=== PATIENT | male | born 1940 | race Asian ===

== ENCOUNTER 2019-08-21 13:11 | Inpatient (IN) | payer SELFPAY ==
[~2019-08-21] VITALS: Ht 172.7 cm; Wt 60.8 kg
--- NOTE | 2019-08-21 13:46 | Emergency Room Report ---
History of Present Illness General Chief Complaint: Multiple Trauma/Fall Source: Patient Present Illness HPI 78-year-old male with no known medical conditions status post mechanical fall. Patient reported slipping on wet floor in his home. He denies any head injury loss of consciousness. Reports fall onto right side where he thought he strained a muscle. He was unable to walk on right side, so he came to emergency room for further evaluation. Patient has no head injury, loss of consciousness or other complaints. Allergies: Coded Allergies: PEACH (Verified Allergy, Unknown, 08/21/19) Nursing Documentation-[facility] Past Medical History: No History, Except For Review of Systems Constitutional: Denies: chills, fever Respiratory: Denies: cough, shortness of breath Cardiovascular: Denies: chest pain, palpitations Gastrointestinal: Denies: diarrhea, vomiting Genitourinary: Denies: hematuria, pain Musculoskeletal: Denies: joint swelling Skin: Denies: rash, lesions Neurological: Denies: headache, dizziness Physical Exam Vital Signs Date Time Temp Pulse Resp B/P (MAP) Pulse Ox O2 Delivery O2 Flow Rate FiO2 08/21/19 13:24 97.5 76 16 178/90 (119) 99 Room Air Sp02 EP Interpretation: reviewed General Appearance: well appearing, no apparent distress, non-toxic Head: normocephalic, atraumatic Eyes: bilateral eye normal inspection ENT: hearing grossly normal, EOM grossly intact, moist mucus membranes Neck: supple Respiratory: lungs clear, normal breath sounds, no respiratory distress, speaking full sentences Cardiovascular #1: regular rate, rhythm, normal capillary refill Cardiovascular #2: 2+ radial (R), 2+ radial (L), 2+ dorsalis pedis (R), 2+ dorsalis pedis (L) Gastrointestinal: soft, non-distended Rectal: deferred Musculoskeletal: decreased range of motion - Right hip flexion and extension, pelvis stable, no lower extremity edema, tender - Over right posterior hip and buttocks., other - Right leg not shortened not externally rotated, unable to lift, or move. Sensation intact distally. Neurologic: alert, motor strength/tone normal - Limited exam right leg otherwise 5 out of 5 extremities, sensory intact, grossly normal Psychiatric: mood/affect normal Skin: warm/dry, normal turgor Medical Decision Making Diagnostic Impression: Primary Impression: Closed right hip fracture Additional Impression: Fall ER Course 78-year-old male status post fall at at home, no head injury or LOC. Reported pain to right hip unable to ambulate/flex or extend. Differential includes fracture, contusion, pain, head injury, weakness Laboratory Tests Test 08/21/19 13:45 White Blood Count 12.0 K/UL (4.8-10.8) H Red Blood Count 4.51 M/UL (4.70-6.10) L Hemoglobin 13.2 G/DL (14.2-18.0) L Hematocrit 37.0 % (42.0-52.0) L Mean Corpuscular Volume 82 FL (80-99) Mean Corpuscular Hemoglobin 29.3 PG (27.0-31.0) Mean Corpuscular Hemoglobin Concent 35.7 G/DL (32.0-36.0) Red Cell Distribution Width 11.4 % (11.6-14.8) L Platelet Count 171 K/UL (150-450) Mean Platelet Volume 7.6 FL (6.5-10.1) Neutrophils (%) (Auto) 77.3 % (45.0-75.0) H Lymphocytes (%) (Auto) 14.5 % (20.0-45.0) L Monocytes (%) (Auto) 6.6 % (1.0-10.0) Eosinophils (%) (Auto) 0.5 % (0.0-3.0) Basophils (%) (Auto) 1.1 % (0.0-2.0) Prothrombin Time 10.4 SEC (9.30-11.50) Prothrombin Time INR 1.0 (0.9-1.1) PTT 26 SEC (23-33) Urine Color Yellow Urine Appearance Clear Urine pH 5 (4.5-8.0) Urine Specific [place] 1.020 (1.005-1.035) Urine Protein 2+ (NEGATIVE) H Urine Glucose (UA) Negative (NEGATIVE) Urine Ketones Negative (NEGATIVE) Urine Blood 2+ (NEGATIVE) H Urine Nitrite Negative (NEGATIVE) Urine Bilirubin Negative (NEGATIVE) Urine Urobilinogen Normal MG/DL (0.0-1.0) Urine Leukocyte Esterase Negative (NEGATIVE) Urine RBC 5-10 /HPF (0 - 0) H Urine WBC 0-2 /HPF (0 - 0) Urine Squamous Epithelial Cells Occasional /LPF Urine Bacteria Occasional /HPF (NONE) Urine Mucus Many /LPF (NONE/OCC) H Sodium Level 138 MMOL/L (136-145) Potassium Level 3.2 MMOL/L (3.5-5.1) L Chloride Level 103 MMOL/L (98-107) Carbon Dioxide Level 27 MMOL/L (21-32) Anion Gap 8 mmol/L (5-15) Blood Urea Nitrogen 25 mg/dL (7-18) H Creatinine 1.0 MG/DL (0.55-1.30) Estimate Glomerular Filtration Rate mL/min (>60) Glucose Level 138 MG/DL (74-106) H Calcium Level 8.4 MG/DL (8.5-10.1) L Total Bilirubin 0.8 MG/DL (0.2-1.0) Aspartate Amino Transferase (AST) 24 U/L (15-37) Alanine Aminotransferase (ALT) 18 U/L (12-78) Alkaline Phosphatase 96 U/L (46-116) Total Protein 7.1 G/DL (6.4-8.2) Albumin 3.2 G/DL (3.4-5.0) L Globulin 3.9 g/dL Albumin/Globulin Ratio 0.8 (1.0-2.7) L Lab Results Impression Mild elevation in WBC mild decrease in hemoglobin 13.2 mild hypokalemia 3.2 mild elevation BUN 25 INR within normal limits Other X-Ray Diagnostic Results Other X-Ray Diagnostic Results : # of Views/Limited Vs Complete: 3 View Indication: Pain Interpretation: other - Right femoral head fracture Last Vital Signs Date Time Temp Pulse Resp B/P (MAP) Pulse Ox O2 Delivery O2 Flow Rate FiO2 08/21/19 13:24 97.5 76 16 178/90 (119) 99 Room Air Reevaluation Impression Discussed case with Dr. Park and consulted Dr. Hung for right hip fracture. Disposition: ADMITTED INPATIENT Condition: Jake Arvizu M.D. Aug 21, 2019 13:46
--- NOTE | 2019-08-21 14:00 | NUR ---
ED Nurse Note:pt. was BIBA from home with possible right hip fx, s/p falls, pt. is A/Ox4 , skin is intact, continent, blood and urine sent to labs, VSS, given meds
[2019-08-21 14:06] LABS: APPEARANCE,URINE CLEAR; BILIRUBIN, URINE NEGATIVE (NEGATIVE); GLUCOSE, URINE (UA) NEGATIVE (NEGATIVE); KETONES,URINE NEGATIVE (NEGATIVE); LEUKOCYTE ESTERASE ,URINE NEGATIVE (NEGATIVE); NITRITE,URINE NEGATIVE (NEGATIVE); PH,URINE 5 (4.5-8.0); PROTEIN,URINE 2+ (NEGATIVE); UROBILINOGEN,URINE NORMAL MG/DL (0.0-1.0)
[2019-08-21 14:08] LABS: BASOPHILS % (AUTO) 1.1 % (0.0-2.0); EOSINOPHILS % (AUTO) 0.5 % (0.0-3.0); HEMOGLOBIN 13.2 G/DL (14.2-18.0); LYMPHOCYTES % (AUTO) 14.5 % (20.0-45.0); MEAN CORPUSCULAR VOLUME 82 FL (80-99); MONOCYTES % (AUTO) 6.6 % (1.0-10.0); NEUTROPHILS % (AUTO) 77.3 % (45.0-75.0); PLATELET COUNT 171 K/UL (150-450); RED BLOOD COUNT 4.51 M/UL (4.70-6.10); RED CELL DISTRIBUTION WIDTH 11.4 % (11.6-14.8)
[2019-08-21 14:11] VITALS: BP 178/90
[2019-08-21] MEDS ORDERED: [UNRECOGNIZED DRUG - REMARK] ORAL (14:12)
[2019-08-21 14:22] LABS: ANION GAP 8 mmol/L (5-15); BLOOD UREA NITROGEN 25 mg/dL (7-18); CALCIUM 8.4 MG/DL (8.5-10.1); CARBON DIOXIDE 27 MMOL/L (21-32); CHLORIDE 103 MMOL/L (98-107); COLOR,URINE YELLOW; POTASSIUM 3.2 MMOL/L (3.5-5.1); SODIUM 138 MMOL/L (136-145)
[2019-08-21 14:26] LABS: ALANINE AMINOTRANSFERASE 18 U/L (12-78); ALBUMIN 3.2 G/DL (3.4-5.0); ALBUMIN/GLOBULIN RATIO 0.8 (1.0-2.7); ALKALINE PHOSPHATASE 96 U/L (46-116); ASPARTATE AMINO TRANSFERASE 24 U/L (15-37); BILIRUBIN,TOTAL 0.8 MG/DL (0.2-1.0)
[2019-08-21 14:40] VITALS: BP 164/68
--- NOTE | 2019-08-21 14:41 | NUR ---
ED Nurse Note:pt. reported falling thursday night at home ,no pain when in bed only when trying to walk
--- NOTE | 2019-08-21 15:05 | NUR ---
ED Nurse Note:pt. was sent to med surge condition stable
--- NOTE | 2019-08-21 15:23 | NUR ---
NURSE NOTES: Pt was admitted from ED via [facility] in stable condition. AAO x 4. Room air. No c/o of distress. c/o of pain only when pt moves/ambulates. IV on LAC 20g intact and patent, with saline lock. Orientation on the unit given. Pt has no belonging. Family at the bedside. Admission was received. Side rails x 2. Bed in the lowest, locked, and alarm on. Call light within reach. Will continue to monitor
[2019-08-21] MEDS ORDERED: Hydromorphone 0.5mg/0.5ml inj IVP PRN (15:30)
[2019-08-21 16:00] VITALS: BP 118/52
--- NOTE | 2019-08-21 19:16 | History and Physical ---
History of Present Illness General Date patient seen: Aug 21, 2019 Reason for Hospitalization: Multiple Trauma/Fall Present Illness HPI 78-year-old male with no known medical conditions status post mechanical fall. Patient reported slipping on wet floor in his home. He denies any head injury loss of consciousness. Reports fall onto right side where he thought he strained a muscle. He was unable to walk on right side, so he came to emergency room for further evaluation. Patient has no head injury, loss of consciousness or other complaints. Family at bedside. This has never happened. He is independent of ADLs. His fall was 2 days prior to admission, his pain got increasingly worse so he came in Past medical history: none Past surgical history: none Family history: no family history of DM, HTN, or cancer Social history: Denies tobacco, etoh, or illicit drug use. Lives at home Allergies: Coded Allergies: PEACH (Verified Allergy, Unknown, 08/21/19) Medication History Scheduled PRN [pill], ORAL NEEDED PRN for For Pain, (Reported) Patient History Healthcare decision maker Resuscitation status Full Code Advanced Directive on File Review of Systems Constitutional: Denies: no symptoms, see HPI, chills, sweats, fever, malaise, weakness, other Eye: Denies: no symptoms, see HPI, eye pain, blurred vision, tearing, double vision, nose pain, nose congestion, acuity changes, discharge, other ENT: Denies: no symptoms, see HPI, ear pain, ear discharge, nose pain, nose congestion, throat pain, throat swelling, mouth pain, hearing loss, nasal discharge, other Respiratory: Denies: no symptoms, see HPI, cough, orthopnea, shortness of breath, stridor, wheezing, BLACK, sputum, other Cardiovascular: Denies: no symptoms, see HPI, chest pain, edema, palpitations, syncope, PND, other Gastrointestinal: Denies: no symptoms, see HPI, abdominal pain, constipation, diarrhea, nausea, vomiting, melena, hematemesis, other Genitourinary: Denies: no symptoms, see HPI, discharge, dysuria, frequency, hematuria, pain, retention, incontinence, urgency, vag bleed/dc, other Musculoskeletal: Denies: no symptoms, see HPI, back pain, gout, joint pain, joint swelling, muscle pain, muscle stiffness, other Skin: Denies: no symptoms, see HPI, rash, change in color, change in hair/nails , dryness, lesions, other Psychiatric: Denies: no symptoms, see HPI, prior hx, anxiety, depressed feelings, emotional problems, SI, HI, hallucinations, other Neurological: Denies: no symptoms, see HPI, headache, numbness, paresthesia, seizure, tingling, tremors, focal weakness, syncope, dizziness, other Endocrine: Denies: no symptoms, see HPI, excessive sweating, flushing, intolerance to temperature, increased thirst, increased urine, unexplained weight loss, other Hematologic/Lymphatic: Denies: no symptoms, see HPI, anemia, blood clots, easy bleeding, easy bruising, swollen glands, diathesis, other Physical Exam Physical Exam Narrative General Appearance: well appearing, no apparent distress, non-toxic Head: normocephalic, atraumatic Eyes: bilateral eye normal inspection ENT: hearing grossly normal, EOM grossly intact, moist mucus membranes Neck: supple, no JVD Respiratory: lungs clear, normal breath sounds, no respiratory distress, speaking full sentences Cardiovascular #1: regular rate, rhythm, no m/r/g, no lower extremity edema Cardiovascular #2: 2+ radial (R), 2+ radial (L), 2+ dorsalis pedis (R), 2+ dorsalis pedis (L) Gastrointestinal: soft, non-distended, non tender, no organomegaly Musculoskeletal: decreased range of motion - Right hip flexion and extension, tender - Over right posterior hip and buttocks. Right shortened and internally rotated. Sensation intact. Neurologic: alert and oriented x4, grossly normal Psychiatric: mood/affect normal Skin: warm/dry, normal turgor Last 24 Hour Vital Signs Date Time Temp Pulse Resp B/P (MAP) Pulse Ox O2 Delivery O2 Flow Rate FiO2 08/21/19 16:00 97.1 77 19 118/52 (74) 94 08/21/19 15:34 Room Air 08/21/19 15:14 97.5 70 14 164/68 95 Room Air 08/21/19 14:40 97.5 70 14 164/68 95 Room Air 08/21/19 14:11 97.5 76 16 178/90 99 Room Air 08/21/19 14:11 76 16 Room Air 08/21/19 13:24 97.5 76 16 178/90 (119) 99 Room Air Laboratory Tests Test 08/21/19 13:45 White Blood Count 12.0 K/UL (4.8-10.8) H Red Blood Count 4.51 M/UL (4.70-6.10) L Hemoglobin 13.2 G/DL (14.2-18.0) L Hematocrit 37.0 % (42.0-52.0) L Mean Corpuscular Volume 82 FL (80-99) Mean Corpuscular Hemoglobin 29.3 PG (27.0-31.0) Mean Corpuscular Hemoglobin Concent 35.7 G/DL (32.0-36.0) Red Cell Distribution Width 11.4 % (11.6-14.8) L Platelet Count 171 K/UL (150-450) Mean Platelet Volume 7.6 FL (6.5-10.1) Neutrophils (%) (Auto) 77.3 % (45.0-75.0) H Lymphocytes (%) (Auto) 14.5 % (20.0-45.0) L Monocytes (%) (Auto) 6.6 % (1.0-10.0) Eosinophils (%) (Auto) 0.5 % (0.0-3.0) Basophils (%) (Auto) 1.1 % (0.0-2.0) Prothrombin Time 10.4 SEC (9.30-11.50) Prothromb Time International Ratio 1.0 (0.9-1.1) Activated Partial Thromboplast Time 26 SEC (23-33) Urine Color Yellow Urine Appearance Clear Urine pH 5 (4.5-8.0) Urine Specific [place] 1.020 (1.005-1.035) Urine Protein 2+ (NEGATIVE) H Urine Glucose (UA) Negative (NEGATIVE) Urine Ketones Negative (NEGATIVE) Urine Blood 2+ (NEGATIVE) H Urine Nitrite Negative (NEGATIVE) Urine Bilirubin Negative (NEGATIVE) Urine Urobilinogen Normal MG/DL (0.0-1.0) Urine Leukocyte Esterase Negative (NEGATIVE) Urine RBC 5-10 /HPF (0 - 0) H Urine WBC 0-2 /HPF (0 - 0) Urine Squamous Epithelial Cells Occasional /LPF Urine Bacteria Occasional /HPF (NONE) Urine Mucus Many /LPF (NONE/OCC) H Sodium Level 138 MMOL/L (136-145) Potassium Level 3.2 MMOL/L (3.5-5.1) L Chloride Level 103 MMOL/L (98-107) Carbon Dioxide Level 27 MMOL/L (21-32) Anion Gap 8 mmol/L (5-15) Blood Urea Nitrogen 25 mg/dL (7-18) H Creatinine 1.0 MG/DL (0.55-1.30) Estimat Glomerular Filtration Rate mL/min (>60) Glucose Level 138 MG/DL (74-106) H Calcium Level 8.4 MG/DL (8.5-10.1) L Total Bilirubin 0.8 MG/DL (0.2-1.0) Aspartate Amino Transf (AST/SGOT) 24 U/L (15-37) Alanine Aminotransferase (ALT/SGPT) 18 U/L (12-78) Alkaline Phosphatase 96 U/L (46-116) Total Protein 7.1 G/DL (6.4-8.2) Albumin 3.2 G/DL (3.4-5.0) L Globulin 3.9 g/dL Albumin/Globulin Ratio 0.8 (1.0-2.7) L Height (Feet): 5 Height (Inches): 8.00 Weight (Pounds): 135 Medications Current Medications Medications (Trade) Dose Ordered Sig/Meredith Route PRN Reason Start Time Stop Time Status Last Admin Dose Admin Acetaminophen (Tylenol) 650 mg Q4H PRN ORAL Mild Pain (1-3)/Temp > 100.5 08/21/19 15:30 09/20/19 15:29 Heparin Sodium (Porcine) (Heparin 5000 units/ml) 5,000 units EVERY 12 HOURS SUBQ 08/21/19 21:00 09/20/19 20:59 Hydromorphone HCl (Dilaudid) 0.5 mg Q4H PRN IVP Pain Scale (4-6) 08/21/19 15:30 08/28/19 15:29 Hydromorphone HCl (Dilaudid) 1 mg Q4H PRN IVP Severe Pain (Pain Scale 7-10) 08/21/19 15:30 08/28/19 15:29 Ondansetron HCl (Zofran) 4 mg Q4H PRN IVP Nausea & Vomiting 08/21/19 15:30 09/20/19 15:29 Assessment/Plan Problem List: (1) Closed right hip fracture ICD Codes: S72.001A - Fracture of unspecified part of neck of right femur, initial encounter for closed fracture SNOMED: 317262776 (2) Fall ICD Codes: W19.XXXA - Unspecified fall, initial encounter SNOMED: 1139125, 967045602 (3) Multiple injuries due to trauma ICD Codes: T07.XXXA - Unspecified multiple injuries, initial encounter SNOMED: 456992705 Status: stable Assessment/Plan: #Right femoral head fracture Admit to med surg Pain control BP control Orthopedic consult Dr. Hung. NPO Check coags, type and screen Will check vit D, b12, TSH, folate, HbA1c and lipid panel EKG and echocardiogram GI and vte ppx Code: full code Plan of care discussed with family and patient I spent 70 minutes on this encoutner. > 50% spent on counselling and care coordination Adan Park M.D. Aug 21, 2019 19:16
--- NOTE | 2019-08-21 19:26 | NUR ---
HAND-OFF: Report given to KATHY Prather and KATHY Padron.
--- NOTE | 2019-08-21 19:28 | NUR ---
NURSE NOTES: Received report from Erlin Orourke RN. Rounding is done with outgoing nurse. Patient is in bed, A/O X 4. No c/o any pain or distress at this time. Room air and breathing is even and unlabored. IV line is patent and intact with saline lock. Family is at bedside. Side rails x 2, bed in the lowest, locked, alarm on. Call light is within reach. Will continue to monitor.
[2019-08-21 20:00] VITALS: BP 183/93
[2019-08-21] MEDS: Heparin 5000 units/ml inj SUBQ SCH (21:07)
[2019-08-21] MEDS: HYDROmorphone 1mg/ml Carpuject IVP PRN (21:10)
--- NOTE | 2019-08-21 22:15 | NUR ---
NURSE NOTES: page Dr. Park regarding Patient's BP; 181/86 on Rt. arm and 192/104 on Lt. arm. @ 22:25, Dr. Park put in orders. Carried out.
[2019-08-21] MEDS ORDERED: HydrALAZINE 25mg tab ORAL PRN (22:30)
[2019-08-22] VITALS (16 sets, daily range): BP systolic 107–151; BP diastolic 51–85
[2019-08-22] MEDS: HYDROmorphone 1mg/ml Carpuject IVP PRN (05:14)
[2019-08-22 06:35] LABS: BASOPHILS % (AUTO) 0.4 % (0.0-2.0); EOSINOPHILS % (AUTO) 0.3 % (0.0-3.0); HEMATOCRIT 36.5 % (42.0-52.0); HEMOGLOBIN 13.1 G/DL (14.2-18.0); LYMPHOCYTES % (AUTO) 15.2 % (20.0-45.0); MEAN CORPUSCULAR VOLUME 82 FL (80-99); MONOCYTES % (AUTO) 7.5 % (1.0-10.0); NEUTROPHILS % (AUTO) 76.6 % (45.0-75.0); PLATELET COUNT 182 K/UL (150-450); RED BLOOD COUNT 4.45 M/UL (4.70-6.10); RED CELL DISTRIBUTION WIDTH 11.7 % (11.6-14.8)
[2019-08-22 06:36] LABS: INR 0.9 (0.9-1.1)
--- NOTE | 2019-08-22 07:16 | NUR ---
HAND-OFF: Report given to Romina CHAVEZ.Rounding is done.
[2019-08-22 07:18] LABS: ANION GAP 7 mmol/L (5-15); BLOOD UREA NITROGEN 22 mg/dL (7-18); CALCIUM 8.3 MG/DL (8.5-10.1); CARBON DIOXIDE 26 MMOL/L (21-32); CHLORIDE 101 MMOL/L (98-107); CHOLESTEROL 164 MG/DL (< 200); CREATININE 0.8 MG/DL (0.55-1.30); HDL CHOLESTEROL 40 MG/DL (40-60); POTASSIUM 4.5 MMOL/L (3.5-5.1); SODIUM 134 MMOL/L (136-145); TRIGLYCERIDES 95 MG/DL (30-150)
--- NOTE | 2019-08-22 07:20 | NUR ---
NURSE NOTES:WALKING ROUNDS WITH NIGHT RN(BYRON Wiseman)PT.AWAKE,A/O X4,IV SITE LEFT FOREARM PATENT.KEEP NPO FOR ELECTIVE SURGERY.RIGHT HIP WITH VISIBLE BRUISE SECONDARY TO FALL.NO C/O PAIN.
[2019-08-22] MEDS: Heparin 5000 units/ml inj SUBQ SCH ×2 (09:00→21:00)
[2019-08-22] MEDS ORDERED: D5 1/2NS 1,000 ML IV SCH (09:30)
--- NOTE | 2019-08-22 10:12 | NUR ---
NURSE NOTES:CONSENTED FOR RIGHT HIP HEMIARTHROPLASTY,INTERPRETED BY ISIS HAWK RN.PT.A/OX4.
--- NOTE | 2019-08-22 12:09 | General Progress Note ---
Assessment/Plan Problem List: (1) Closed right hip fracture ICD Codes: S72.001A - Fracture of unspecified part of neck of right femur, initial encounter for closed fracture SNOMED: 649266607 (2) Fall ICD Codes: W19.XXXA - Unspecified fall, initial encounter SNOMED: 1916458, 419462964 (3) Multiple injuries due to trauma ICD Codes: T07.XXXA - Unspecified multiple injuries, initial encounter SNOMED: 314245813 Status: stable Assessment/Plan: #Right femoral head fracture Admit to med surg Pain control BP control Orthopedic consult Dr. Hung. for OR today NPO Check coags, type and screen Will check vit D, b12, TSH, folate, HbA1c and lipid panel echocardiogram: Grade i diastolic dysfunction GI and vte ppx Code: full code Plan of care discussed with family and patient I spent 40 minutes on this encounter. > 50% spent on counselling and care coordination Subjective Date patient seen: Aug 22, 2019 ROS Limited/Unobtainable: No Constitutional: Denies: no symptoms, chills, diaphoresis, fever, malaise, weakness, other HEENT: Denies: no symptoms, eye pain, blurred vision, tearing, double vision, ear pain, ear discharge, nose pain, nose congestion, throat pain, throat swelling, mouth pain, mouth swelling, other Cardiovascular: Denies: no symptoms, chest pain, edema, irregular heart rate, lightheadedness, palpitations, syncope, other Respiratory: Denies: no symptoms, cough, orthopnea, shortness of breath, SOB with excertion, SOB at rest, sputum, stridor, wheezing, other Gastrointestinal/Abdominal: Denies: no symptoms, abdomen distended, abdominal pain, black stools, tarry stools, blood in stool, constipated, diarrhea, difficulty swallowing, nausea, poor appetite, poor fluid intake, rectal bleeding , vomiting, other Genitourinary: Denies: no symptoms, burning, discharge, frequency, flank pain, hematuria, incontinence, pain, urgency, other Neurologic/Psychiatric: Denies: no symptoms, anxiety, depressed, emotional problems, headache, numbness, paresthesia, pre-existing deficit, seizure, tingling, tremors, weakness, other Endocrine: Denies: no symptoms, excessive sweating, flushing, intolerance to cold, intolerance to heat, increased hunger, increased thirst, increased urine, unexplained weight gain, unexplained weight loss, other Hematologic/Lymphatic: Denies: no symptoms, anemia, easy bleeding, easy bruising, other Allergies: Coded Allergies: PEACH (Verified Allergy, Unknown, 08/21/19) Subjective deneis pain, no acute events, for OR today Objective Last 24 Hour Vital Signs Date Time Temp Pulse Resp B/P (MAP) Pulse Ox O2 Delivery O2 Flow Rate FiO2 08/22/19 09:00 85 107/68 08/22/19 08:00 97.8 85 18 107/68 (81) 95 08/22/19 07:20 Room Air 08/22/19 04:00 98.4 85 19 151/75 (100) 94 08/22/19 00:00 98.4 96 18 146/79 (101) 91 08/21/19 22:48 84 181/86 08/21/19 21:00 Room Air 08/21/19 20:00 98.6 84 18 183/93 (123) 94 08/21/19 16:00 97.1 77 19 118/52 (74) 94 08/21/19 15:34 Room Air 08/21/19 15:14 97.5 70 14 164/68 95 Room Air 08/21/19 14:40 97.5 70 14 164/68 95 Room Air 08/21/19 14:11 97.5 76 16 178/90 99 Room Air 08/21/19 14:11 76 16 Room Air 08/21/19 13:24 97.5 76 16 178/90 (119) 99 Room Air Intake and Output 08/21/19 08/22/19 19:00 07:00 Intake Total 480 ml Balance 480 ml Intake Oral 480 ml # Voids 2 Laboratory Tests 08/21/19 13:45: White Blood Count 12.0H, Red Blood Count 4.51L, Hemoglobin 13.2L, Hematocrit 37.0L, Mean Corpuscular Volume 82, Mean Corpuscular Hemoglobin 29.3, Mean Corpuscular Hemoglobin Concent 35.7, Red Cell Distribution Width 11.4L, Platelet Count 171, Mean Platelet Volume 7.6, Neutrophils (%) (Auto) 77.3H, Lymphocytes (%) (Auto) 14.5L, Monocytes (%) (Auto) 6.6, Eosinophils (%) (Auto) 0.5, Basophils (%) (Auto) 1.1, Prothrombin Time 10.4, Prothromb Time International Ratio 1.0, Activated Partial Thromboplast Time 26, Urine Color Yellow, Urine Appearance Clear, Urine pH 5, Urine Specific [place] 1.020, Urine Protein 2+H, Urine Glucose (UA) Negative, Urine Ketones Negative, Urine Blood 2+ H, Urine Nitrite Negative, Urine Bilirubin Negative, Urine Urobilinogen Normal, Urine Leukocyte Esterase Negative, Urine RBC 5-10H, Urine WBC 0-2, Urine Squamous Epithelial Cells Occasional, Urine Bacteria Occasional, Urine Mucus ManyH, Sodium Level 138, Potassium Level 3.2L, Chloride Level 103, Carbon Dioxide Level 27, Anion Gap 8, Blood Urea Nitrogen 25H, Creatinine 1.0, Estimat Glomerular Filtration Rate , Glucose Level 138H, Calcium Level 8.4L, Total Bilirubin 0.8, Aspartate Amino Transf (AST/SGOT) 24, Alanine Aminotransferase ( ALT/SGPT) 18, Alkaline Phosphatase 96, Total Protein 7.1, Albumin 3.2L, Globulin 3.9, Albumin/Globulin Ratio 0.8L 08/22/19 04:45: White Blood Count 10.0, Red Blood Count 4.45L, Hemoglobin 13.1L, Hematocrit 36.5L, Mean Corpuscular Volume 82, Mean Corpuscular Hemoglobin 29.4, Mean Corpuscular Hemoglobin Concent 35.8, Red Cell Distribution Width 11.7, Platelet Count 182, Mean Platelet Volume 8.1, Neutrophils (%) (Auto) 76.6H, Lymphocytes ( %) (Auto) 15.2L, Monocytes (%) (Auto) 7.5, Eosinophils (%) (Auto) 0.3, Basophils (%) (Auto) 0.4, Prothrombin Time 10.0, Prothromb Time International Ratio 0.9, Sodium Level 134L, Potassium Level 4.5, Chloride Level 101, Carbon Dioxide Level 26, Anion Gap 7, Blood Urea Nitrogen 22H, Creatinine 0.8, Estimat Glomerular Filtration Rate , Glucose Level 115H, Calcium Level 8.3L, Hemoglobin A1c 5.2, Triglycerides Level 95, Cholesterol Level 164, LDL Cholesterol 108H, HDL Cholesterol 40, Cholesterol/HDL Ratio 4.1, Vitamin B12 Level 394, Vitamin D 25-Hydroxy [Pending], 25-Hydroxy Vitamin D2 [Pending], 25-Hydroxy Vitamin D3 [ Pending], Folate 8.8, Thyroid Stimulating Hormone (TSH) 3.031 Height (Feet): 5 Height (Inches): 8.00 Weight (Pounds): 135 Objective General Appearance: well appearing, no apparent distress, non-toxic Head: normocephalic, atraumatic Eyes: bilateral eye normal inspection ENT: hearing grossly normal, EOM grossly intact, moist mucus membranes Neck: supple, no JVD Respiratory: lungs clear, normal breath sounds, no respiratory distress, speaking full sentences Cardiovascular #1: regular rate, rhythm, no m/r/g, no lower extremity edema Cardiovascular #2: 2+ radial (R), 2+ radial (L), 2+ dorsalis pedis (R), 2+ dorsalis pedis (L) Gastrointestinal: soft, non-distended, non tender, no organomegaly Musculoskeletal: decreased range of motion - Right hip flexion and extension, tender - Over right posterior hip and buttocks. Right shortened and internally rotated. Sensation intact. Neurologic: alert and oriented x4, grossly normal Psychiatric: mood/affect normal Skin: warm/dry, normal turgor Adan Park M.D. Aug 22, 2019 12:09
--- NOTE | 2019-08-22 12:59 | Diagnostic Imaging Report ---
Indications: Right hip pain Findings: Two views of the right hip were obtained. There is an acute fracture of the right femoral neck. The fracture is partially obscured. Bones are osteopenic. IMPRESSION: Acute right femoral neck fracture.
--- NOTE | 2019-08-22 16:00 | NUR ---
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
--- NOTE | 2019-08-22 16:09 | NUR ---
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 97.5 HR 76 RR 16 B/P 178/70 WBC 12.0 K 3.2 RIGHT HIP X-RAY=FEMORAL NECK FRACTURE IS: DILAUDID IV ZOFRAN IV ADMITTED TO MED/SURG MED/SURG STATUS DCP RETURN HOME
[2019-08-22] MEDS ORDERED: cloNIDine 1000mcg/10ml inj ONE (17:21)
[2019-08-22] MEDS ORDERED: EPINEPHrine 1mg/1ml Amp ONE ×2 (17:21→18:10)
[2019-08-22] MEDS ORDERED: Bupivacaine 0.5% Inj 30 ml vial INJ ONE (17:21)
--- NOTE | 2019-08-22 17:30 | NUR ---
NURSE NOTES:CARDER BLANKETS BY LASHAE CHAVEZ(SURGERY),CONSENT FOR RIGHT HIP HEMIARTHROPLASTY RE OBTAINED [employer]RU [employer] BY [employer] HAWK(RN) THRU [employer]([place])#[id number].PT,STABLE ON PICKUP.
[2019-08-22] MEDS ORDERED: NeoSporin Gu Irrig 1ml Amp IRRIG ONE (17:37)
[2019-08-22] MEDS ORDERED: Duramorph PF 5mg/10ml amp ONE (17:37)
[2019-08-22] MEDS ORDERED: Ketorolac 30mg Inj ONE (17:37)
[2019-08-22] MEDS ORDERED: Kenalog-40 1ml Vial ONE (17:37)
[2019-08-22] MEDS ORDERED: Bacitracin 50000 Units Vial ONE (17:37)
[2019-08-22] MEDS ORDERED: LR 1000ml 1,000 ML IVLG SCH (17:46)
--- NOTE | 2019-08-22 17:48 | Anethesia Preoperative Eval ---
Anesthesia Pre-op PMH/ROS General Date of Evaluation: Aug 22, 2019 Time of Evaluation: 19:11 Anesthesiologist: Prashant ASA Score: ASA 3 - Emergency Mallampati Score Class I : Soft palate, uvula, fauces, pillars visible Class II: Soft palate, uvula, fauces visible Class III: Soft palate, base of uvula visible Class IV: Only hard plate visible Mallampati Classification: Class II Surgeon: Abhilash Diagnosis: R Hip Pain Surgical Procedure: R Hip Arthroplasty Anesthesia History: none Family History: no anesthesia problems Allergies: Coded Allergies: PEACH (Verified Allergy, Unknown, 08/21/19) Medications: see eMAR Patient NPO?: Yes NPO Date: Aug 22, 2019 NPO Time: 0900 Past Medical History Cardiovascular: Reports: HTN, other - PVD Anesthesia Pre-op Phys. Exam Physician Exam Last Vital Signs Date Time Temp Pulse Resp B/P (MAP) Pulse Ox O2 Delivery O2 Flow Rate FiO2 08/22/19 16:00 99.1 73 18 133/58 (83) 98 08/22/19 07:20 Room Air Constitutional: NAD Neurologic: CN 2-12 intact Cardiovascular: RRR Respiratory: CTA Gastrointestinal: S/NT/ND Airway Exam Mallampati Score: Class II MO: full ROM: full Teeth: missing, intact Anesthesia Pre-op A/P Labs Hematology Test 08/22/19 04:45 White Blood Count 10.0 K/UL (4.8-10.8) Red Blood Count 4.45 M/UL (4.70-6.10) L Hemoglobin 13.1 G/DL (14.2-18.0) L Hematocrit 36.5 % (42.0-52.0) L Mean Corpuscular Volume 82 FL (80-99) Mean Corpuscular Hemoglobin 29.4 PG (27.0-31.0) Mean Corpuscular Hemoglobin Concent 35.8 G/DL (32.0-36.0) Red Cell Distribution Width 11.7 % (11.6-14.8) Platelet Count 182 K/UL (150-450) Mean Platelet Volume 8.1 FL (6.5-10.1) Neutrophils (%) (Auto) 76.6 % (45.0-75.0) H Lymphocytes (%) (Auto) 15.2 % (20.0-45.0) L Monocytes (%) (Auto) 7.5 % (1.0-10.0) Eosinophils (%) (Auto) 0.3 % (0.0-3.0) Basophils (%) (Auto) 0.4 % (0.0-2.0) Coagulation Test 08/22/19 04:45 Prothrombin Time 10.0 SEC (9.30-11.50) Prothromb Time International Ratio 0.9 (0.9-1.1) Chemistry Test 08/22/19 04:45 Sodium Level 134 MMOL/L (136-145) L Potassium Level 4.5 MMOL/L (3.5-5.1) Chloride Level 101 MMOL/L (98-107) Carbon Dioxide Level 26 MMOL/L (21-32) Anion Gap 7 mmol/L (5-15) Blood Urea Nitrogen 22 mg/dL (7-18) H Creatinine 0.8 MG/DL (0.55-1.30) Estimat Glomerular Filtration Rate mL/min (>60) Glucose Level 115 MG/DL (74-106) H Hemoglobin A1c 5.2 % (4.3-6.0) Calcium Level 8.3 MG/DL (8.5-10.1) L Triglycerides Level 95 MG/DL (30-150) Cholesterol Level 164 MG/DL (< 200) LDL Cholesterol 108 mg/dL (<100) H HDL Cholesterol 40 MG/DL (40-60) Cholesterol/HDL Ratio 4.1 (3.3-4.4) Vitamin B12 Level 394 PG/ML (193-986) Vitamin D 25-Hydroxy Pending 25-Hydroxy Vitamin D2 Pending 25-Hydroxy Vitamin D3 Pending Folate 8.8 NG/ML (8.6-58.9) Thyroid Stimulating Hormone (TSH) 3.031 uiU/mL (0.358-3.740) Risk Assessment & Plan Assessment: ASA 3E Plan: Spinal/TIVA Status Change Before Surgery: No Pre-Antibiotics Dru Gram Ancef IV Given Within 1 Hr of Incision: Yes Time Given: 19:41 Jose Cerda MD Aug 22, 2019 17:48
[2019-08-22] MEDS ORDERED: Sodium Chloride 10ml vial INJ ONE (17:58)
[2019-08-22] MEDS ORDERED: Metoclopramide 10mg/2ml Inj IVP PRN (18:00)
[2019-08-22] MEDS ORDERED: Tranexamic Acid 1,000 MG in NS 65 ML IV ONE (18:00)
[2019-08-22] MEDS ORDERED: Atropine Sulfate 0.4mg/ml inj IVP PRN (18:00)
[2019-08-22] MEDS ORDERED: LORazepam Inj 2mg/ml 1ml IV PRN (18:00)
[2019-08-22] MEDS ORDERED: Hydromorphone 0.5mg/0.5ml inj IVP PRN (18:00)
[2019-08-22] MEDS ORDERED: oxyCODONE HCL/Acetaminophen 5/325mg ORAL PRN (18:00)
[2019-08-22] MEDS ORDERED: HYDROcodone/Acetamin 7.5/325 tab ORAL PRN ×2 (18:00→22:35)
[2019-08-22] MEDS ORDERED: DiphenhydrAMINE 50mg/ml Inj IVP PRN (18:00)
[2019-08-22] MEDS ORDERED: Labetalol 5mg/ml 20ml vial IV PRN (18:00)
[2019-08-22] MEDS ORDERED: HYDROcodone/Acetamin 5/325 tab ORAL PRN ×2 (18:00→22:34)
[2019-08-22] MEDS ORDERED: Meperidine 50mg/ml Inj(FOR RIGORS ONLY) IVP PRN (18:00)
[2019-08-22] MEDS ORDERED: Midazolam 2mg/2ml Inj IVP PRN (18:00)
[2019-08-22] MEDS ORDERED: fentaNYL 100 mcg/2 mL IV PRN (18:00)
[2019-08-22] MEDS ORDERED: fentaNYL 100 mcg/2 mL IV ONE (18:28)
--- NOTE | 2019-08-22 18:45 | 48 Hour Post Anesthesia Eval ---
Post Anesthesia Evaluation Procedure: R Hip Hemiarthoplasty Date of Evaluation: Aug 22, 2019 Time of Evaluation: 23:31 Blood Pressure Systolic: 123 0: 79 Pulse Rate: 83 Respiratory Rate: 18 Temperature (Fahrenheit): 98 O2 Sat by Pulse Oximetry: 99 Airway: patent Nausea: No Vomiting: No Pain Intensity: 1 Hydration Status: adequate Cardiopulmonary Status: Stable Mental Status/LOC: patient returned to baseline Follow-up Care/Observations: 0 Post-Anesthesia Complications: 0 Follow-up care needed: N/A Jose Cerda MD Aug 22, 2019 18:45
--- NOTE | 2019-08-22 18:45 | Immediate Post-Op Evaluation ---
Immediate Post-Op Evalulation Immediate Post-Op Evalulation Procedure: R Hip Hemiarthoplasty Date of Evaluation: Aug 22, 2019 Time of Evaluation: 21:27 IV Fluids: 1200 LR Blood Products: 0 Estimated Blood Loss: 75 Urinary Output: 400 Blood Pressure Systolic: 143 Blood Pressure Diastolic: 81 Pulse Rate: 92 Respiratory Rate: 16 O2 Sat by Pulse Oximetry: 100 Temperature (Fahrenheit): 97.6 Pain Score (1-10): 1 Nausea: No Vomiting: No Complications 0 Patient Status: awake, reacts, patent, none Hydration Status: adequate Dru Gram Ancef IV Given Within 1 Hr of Incision: Yes Time Given: 19:41 Jose Cerda MD Aug 22, 2019 18:45
[2019-08-22] MEDS ORDERED: Lidocaine 1% MPF 10mg/ml 5ml ONE (19:00)
[2019-08-22] MEDS ORDERED: NS Irrig 2000ml IRRIG ONE ×2 (19:00)
[2019-08-22] MEDS ORDERED: Propofol 200mg/20ml IV ONE (19:00)
[2019-08-22] MEDS ORDERED: LR 1000ml ONE (19:00)
[2019-08-22] MEDS ORDERED: Sterile Water Irrig 1000ml IRRIG ONE (19:00)
--- NOTE | 2019-08-22 19:10 | NUR ---
HAND-OFF: Report given to RIGOBERTO MERIDA RN/YVES CHAVEZ PT. IN SURGERY..
--- NOTE | 2019-08-22 19:18 | Pre-Procedure Note/Attestation ---
Pre-Procedure Note/Attestation Complete Prior to Procedure Planned Procedure: right Procedure Narrative: hip hemiarthroplasty Indications for Procedure Pre-Operative Diagnosis: right femoral neck fracture Attestation I attest that I discussed the nature of the procedure; its benefits; risks and complications; and alternatives (and the risks and benefits of such alternatives ), prior to the procedure, with the patient (or the patient's legal billing customer service representative). I attest that, if there was a reasonable possibility of needing a blood transfusion, the patient (or the patient's legal billing customer service representative) was given the [facility] standardized written summary, pursuant to the [employer] Blood Safety Act ([place] Health and Safety Code # 1645, as amended). I attest that I re-evaluated the patient just prior to the surgery and that there has been no change in the patient's H&P, except as documented below: Jr Hung MD Aug 22, 2019 19:18
--- NOTE | 2019-08-22 19:19 | Operative Note - PDOC ---
Operative Note Operative Note Pre-op Diagnosis: right femoral neck fracture Procedure: see op report Post-op Diagnosis: same as pre-op plus Operative Findings: consistent w/pre-op dx studies Anesthesia: regional Specimen: none Complications: none Condition: stable Estimated Blood Loss: none Implant(s) used?: Yes Jr Hung MD Aug 22, 2019 19:19
[2019-08-22] MEDS ORDERED: Morphine Sulfate 2mg/ml Inj(IV/IM USE ONLY) IVP PRN ×2 (19:30→22:33)
[2019-08-22] MEDS ORDERED: ePHEDrine 50mg/ml Inj ONE (20:02)
--- NOTE | 2019-08-22 21:56 | NUR ---
NURSE NOTES: Patient came back from surgery at 21:56. Received report from PACU Nurse. Assessment is done. VS is stable. Patient is A/O x 4. No c/o pain at this time. Dressing on Rt. Hip is D/C/I. IV line is patent and intact. Hartman is patent and draining to gravity. Bed alarm is on with lowest position. Call light is within reach. Will continue to monitor.
[2019-08-22] MEDS ORDERED: D5 1/2NS w/KCl 20mEq 1,000 ML IV SCH (22:30)
[2019-08-22] MEDS ORDERED: Milk of Magnesia 30ml Ud ORAL PRN (22:36)
--- NOTE | 2019-08-22 22:55 | NUR ---
NURSE NOTES: Dr. Valentin Sanchez called back from Dr. Biswas's group. Informed MD that pt back from surgery at 2155. No new orders given.
--- NOTE | 2019-08-22 23:30 | Consultation ---
DATE OF CONSULTATION: 08/21/2019 CONSULTING PHYSICIAN: Jr Hung M.D. CHIEF COMPLAINT: Right hip pain. HISTORY OF PRESENT ILLNESS: The patient is a 78-year-old gentleman, who sustained a mechanical fall. He had difficulty ambulating. He was brought to the emergency room approximately two days after the fall by his family. He was diagnosed with displaced femoral neck fracture. Orthopedic consultation was obtained for further care and recommendations. PAST MEDICAL HISTORY: Reviewed from the intake chart. PAST SURGICAL HISTORY: Reviewed from the intake chart. MEDICATIONS: Reviewed from the intake chart. ASSESSMENT: Right femoral neck fracture. DISCUSSION: At this point, he has a displaced femoral neck fracture, which is indicative of operative fixation of right hip hemiarthroplasty. Risks, limitations, expectations, and complications of the procedure were discussed in detail. All questions addressed. We will proceed with surgery tomorrow if he is medically optimized in anticipation of surgery. Jr Hung M.D. DR: STELLA JOB#: [id number] CC:
[2019-08-23] VITALS (7 sets, daily range): BP systolic 143–156; BP diastolic 74–97
[2019-08-23] MEDS ORDERED: D5 1/2NS 1,000 ML IV SCH
--- NOTE | 2019-08-23 01:30 | Operative Note - Dictated ---
DATE OF OPERATION: 08/22/2019 PREOPERATIVE DIAGNOSIS: Right femoral neck fracture. POSTOPERATIVE DIAGNOSIS: Right femoral neck fracture. PROCEDURE: Right hip hemiarthroplasty. SURGEON: Jr Hung M.D. ANESTHESIA: Spinal. [id number] FOR PROCEDURE: The patient is a pleasant 78-year-old gentleman, who sustained a mechanical fall, diagnosed with a vertical femoral neck fracture, displaced femoral neck fracture indicative of operative fixation with right hip hemiarthroplasty. Risks, limitations, expectations, complications of procedure were discussed in detail. All questions addressed including leg length discrepancy, instability, need for future surgery, risk of anesthesia, medical complications, DVT, PE, mortality risks. All questions were addressed. I spoke periodically with the son who asked me to speak to the neighbor, Zechariah Thakur, and we went over some limitations and expectations of surgery. All questions were addressed. We will use a online advertising analyst to translate the treatment plan prior to surgery. DESCRIPTION OF PROCEDURE: After informed consent was obtained, the patient was brought to the operating room. The patient was placed under general anesthesia. Spinal anesthesia was placed. Ancef was administered. The patient was then carefully positioned in lateral decubitus position. Right hip was prepped and draped in a sterile manner. Time-out was performed. Posterolateral skin incision was then made. Fascia herbie was incised. Piriformis was tenotomized. Capsule was T'd and tagged with #2 FiberWire. neck cut below the fracture site was performed. There was a vertical component pre-extended into the intratrochanteric area. It was difficult to visualize the extent of the fracture. Therefore, the incision was extended distally to better visualize the inner trochanter and all the way to the lesser trochanter. There was significant comminution in the inner trochanter area. However, there was a rim of good cortical bone. Therefore, sequential reaming up to a size 5 was performed with a size 5 femoral component placed was then used to plane. No sequential bone contact. The was nice and stable with posterior anterior stress. With the 0 head neck combo, hip was reduced. Soft tissue tension appeared to be intact. The leg lengths clinically were equal. Hip flexed to 120 degrees, 90 degrees flexion, internal rotation to 60 degrees. Extension and external rotation was nice and stable. At this point, it was felt that this was appropriate. Therefore, trial components were removed. Final implants were impacted into place. The capsule was reapproximated using two drill holes through the greater trochanter. Fascia herbie was closed with #1 Vicryl suture, 2-0 Vicryl suture, and 3-0 Monocryl sutures. Steri-Strips and a sterile dressing were applied. ESTIMATED BLOOD LOSS: 50 mL. COMPLICATIONS: None. SPECIMENS: Femoral head. IMPLANTS: Include size 5 Accolade stem 48 bipolar head with a 0 head neck combo. Jr Hung M.D. DR: MAGALIE JOB#: [id number] CC:
[2019-08-23] MEDS: ceFAZolin sod 2 GM in D5W 110 ML IV SCH ×2 (01:47→11:08)
--- NOTE | 2019-08-23 07:28 | NUR ---
HAND-OFF: written report left for Elvira CHAVEZ. Patient in stable condition.
--- NOTE | 2019-08-23 07:35 | NUR ---
NURSE NOTES: Patient is in bed awake and able to verbalize needs. Stable. Denies pain or SOB. Patient encouraged to use call light for assistance, verbalized understanding. Surgical dressing c/d/i. Patient is in bed in locked and lowest position with call light within reach. All safety measures provided. Will continue to monitor.
--- NOTE | 2019-08-23 08:51 | General Progress Note ---
Assessment/Plan Problem List: (1) Closed right hip fracture ICD Codes: S72.001A - Fracture of unspecified part of neck of right femur, initial encounter for closed fracture SNOMED: 114650417 (2) Fall ICD Codes: W19.XXXA - Unspecified fall, initial encounter SNOMED: 9813087, 868769066 (3) Multiple injuries due to trauma ICD Codes: T07.XXXA - Unspecified multiple injuries, initial encounter SNOMED: 689986537 Status: stable Assessment/Plan: #Right femoral head fracture s/p R hip arthroplasty POD#1 med surg Pain control BP control Orthopedic consult Dr. Hung. Check coags, type and screen Will check vit D, b12, TSH, folate, HbA1c and lipid panel --> start B12, bit D pending echocardiogram: Grade i diastolic dysfunction PT/OT Discharge planning GI and vte ppx Code: full code Plan of care discussed with family and patient I spent 40 minutes on this encounter. > 50% spent on counselling and care coordination Subjective Date patient seen: Aug 23, 2019 ROS Limited/Unobtainable: No Constitutional: Denies: no symptoms, chills, diaphoresis, fever, malaise, weakness, other HEENT: Denies: no symptoms, eye pain, blurred vision, tearing, double vision, ear pain, ear discharge, nose pain, nose congestion, throat pain, throat swelling, mouth pain, mouth swelling, other Cardiovascular: Denies: no symptoms, chest pain, edema, irregular heart rate, lightheadedness, palpitations, syncope, other Respiratory: Denies: no symptoms, cough, orthopnea, shortness of breath, SOB with excertion, SOB at rest, sputum, stridor, wheezing, other Gastrointestinal/Abdominal: Denies: no symptoms, abdomen distended, abdominal pain, black stools, tarry stools, blood in stool, constipated, diarrhea, difficulty swallowing, nausea, poor appetite, poor fluid intake, rectal bleeding , vomiting, other Genitourinary: Denies: no symptoms, burning, discharge, frequency, flank pain, hematuria, incontinence, pain, urgency, other Neurologic/Psychiatric: Denies: no symptoms, anxiety, depressed, emotional problems, headache, numbness, paresthesia, pre-existing deficit, seizure, tingling, tremors, weakness, other Endocrine: Denies: no symptoms, excessive sweating, flushing, intolerance to cold, intolerance to heat, increased hunger, increased thirst, increased urine, unexplained weight gain, unexplained weight loss, other Hematologic/Lymphatic: Denies: no symptoms, anemia, easy bleeding, easy bruising, other Allergies: Coded Allergies: PEACH (Verified Allergy, Unknown, 08/21/19) Subjective seen and examined. family at bedside. pod # 1 s/p R hips arthroplasty Objective Last 24 Hour Vital Signs Date Time Temp Pulse Resp B/P (MAP) Pulse Ox O2 Delivery O2 Flow Rate FiO2 08/23/19 04:00 98.3 67 18 144/74 (97) 97 08/23/19 00:00 97.6 69 17 143/79 (100) 96 08/23/19 00:00 Nasal Cannula 2.0 08/22/19 23:30 97.8 76 17 138/83 (101) 96 08/22/19 23:00 97.8 75 18 136/76 (96) 96 08/22/19 22:45 97.6 74 18 138/83 (101) 96 08/22/19 22:30 97.5 73 18 134/74 (94) 96 08/22/19 22:15 97.6 77 18 135/74 (94) 97 08/22/19 22:00 97.8 81 18 147/80 97 Nasal Cannula 3 08/22/19 22:00 97.3 77 18 138/73 (94) 96 08/22/19 21:45 77 18 139/78 98 Nasal Cannula 3 08/22/19 21:35 82 15 137/85 100 Nasal Cannula 3 08/22/19 21:25 79 18 143/76 100 Simple Mask 6 08/22/19 21:20 81 13 140/78 99 Simple Mask 6 08/22/19 21:16 97.6 84 11 143/81 99 Simple Mask 6 08/22/19 21:15 83 18 99 08/22/19 21:13 92 16 100 08/22/19 16:00 99.1 73 18 133/58 (83) 98 08/22/19 12:00 97.8 74 18 137/51 (79) 97 08/22/19 09:00 85 107/68 Intake and Output 08/22/19 08/23/19 18:59 06:59 Intake Total 550 ml 2175 ml Output Total 700 ml 1575 ml Balance -150 ml 600 ml Intake Oral 100 ml 240 ml IV Total 450 ml 1935 ml Output Urine Total 700 ml 1500 ml Estimated Blood Loss 75 ml # Voids 3 1 Height (Feet): 5 Height (Inches): 8.00 Weight (Pounds): 135 Objective General Appearance: well appearing, no apparent distress, non-toxic Head: normocephalic, atraumatic Eyes: bilateral eye normal inspection ENT: hearing grossly normal, EOM grossly intact, moist mucus membranes Neck: supple, no JVD Respiratory: lungs clear, normal breath sounds, no respiratory distress, speaking full sentences Cardiovascular #1: regular rate, rhythm, no m/r/g, no lower extremity edema Cardiovascular #2: 2+ radial (R), 2+ radial (L), 2+ dorsalis pedis (R), 2+ dorsalis pedis (L) Gastrointestinal: soft, non-distended, non tender, no organomegaly Musculoskeletal: decreased range of motion - right hip dressing c/d/i Neurologic: alert and oriented x4, grossly normal Psychiatric: mood/affect normal Skin: warm/dry, normal turgor, dressing c/d/i Adan Park M.D. Aug 23, 2019 08:51
[2019-08-23] MEDS: celeBREX 200mg Cap **SURGERY PATIENTS ONLY ORAL SCH (09:07)
[2019-08-23] MEDS: Docusate 100mg cap ORAL SCH ×3 (09:08→17:42)
[2019-08-23] MEDS: Heparin 5000 units/ml inj SUBQ SCH ×2 (09:09→20:13)
--- NOTE | 2019-08-23 10:25 | NUR ---
PT EVALUATION NOTE Patient seen for initial evaluation. Patient presents with generalized weakness and impaired functional mobility s/p R hip hemiarthroplasty due to mechanical fall. Patient educated in THR precautions using Bengali speaking RN for translation. Patient required min assist for bed mobility and CGA for transfers with FWW. Patient able to ambulate 60 ft with CGA and FWW, slowed velocity and decreased bilateral step length. Patient will benefit from skilled inpatient PT intervention to address strength, balance and safety for improved level of functional mobility. Patient lives in a second floor apartment without elevator access. Recommend home with home PT vs ARU/SNF for short term rehab once medically cleared by MD depending on patient's progress. Recommend FWW and elevated toilet seat for home use. Addendum: 08/23/19 at 1104 by GERRY MORSE PT Amended: Links added.
[2019-08-23] MEDS ORDERED: Tubing IV Secondary IV ONE (10:49)
--- NOTE | 2019-08-23 12:38 | NUR ---
CASE MANAGEMENT: REVIEW 08/23/19 SI: RIGHT HIP FRACTURE POD # 1 S/P RIGHT HIP ARTHROPLASTY 98.3 77 14 156/97 93% ON RA NA 134 K 4.5 BUN 22 CR 0.8 GLU 115 IS: IVF 75MLS/HR HEPARIN SQ Q12H CELEBREX PO QD NORVASC PO QD IV MORPHINE Q3H NORCO PO Q4-6H PROTONIX PO QD MED -SURG 3 EAST PLAN ~~~~~~~~~PAIN CONTROL BP CONTROL P.T. DISCHARGE PLANNING
--- NOTE | 2019-08-23 14:33 | Diagnostic Imaging Report ---
Indication: pain Pelvic trauma and pain Findings: Single AP view of the pelvis was performed. Comparison: 08/21/2019 Recent postop x-ray showing a right bipolar hip hemiarthroplasty. Soft tissue air noted in the surgical site. There is a drain present. Alignment and position appear unremarkable. Hartman catheter noted. IMPRESSION: Postop from a right hip replacement surgery
--- NOTE | 2019-08-23 17:42 | NUR ---
NURSE NOTES: Patient ambulated x2 during shift without incident. Tolerated well.
--- NOTE | 2019-08-23 19:25 | NUR ---
HAND-OFF: Report given to Pipo CHAVEZ. Patient is stable.
--- NOTE | 2019-08-23 19:30 | NUR ---
NURSE NOTES: Received report from KATHY Felix and rounds made with outgoing nurse. Received pt laying in bed, AOX4, Czech speaking only, at bedside who speaks Pashto. Denies any pain. No distress noted. Surgical dressing c/d/i. IV left wrist heplock patent and intact. Bed in lowest position and locked, side rails up x 2, call light within reach. Will continue to monitor.
[2019-08-24 05:35] VITALS: BP 136/76
--- NOTE | 2019-08-24 07:24 | NUR ---
HAND-OFF: Report given to KATHY Singh. Pt in stable condition.
--- NOTE | 2019-08-24 07:30 | NUR ---
NURSE NOTES: Received report from Pipo CHAVEZ. Patient is awake and oriented, no acute distress noted, reporting no pain at this time. Left wrist IV intact, locked. Right hip dressing clean and dry, neuro check assessed and intact, patient able to move bilateral legs without difficulty, denies numbness/tingling. Updated on plan of care for the day. Fall precautions maintained. Side rails upx3, bed low and locked, bed alarm armed, call light within reach.
[2019-08-24 08:00] VITALS: BP 136/74
[2019-08-24] MEDS: Vitamin B-12 500mcg tab ORAL SCH (09:05)
[2019-08-24] MEDS: Docusate 100mg cap ORAL SCH ×3 (09:05→17:09)
[2019-08-24] MEDS: Heparin 5000 units/ml inj SUBQ SCH ×2 (09:06→20:21)
[2019-08-24] MEDS: celeBREX 200mg Cap **SURGERY PATIENTS ONLY ORAL SCH (09:07)
[2019-08-24 10:26] LABS: HEMATOCRIT 36.9 % (42.0-52.0); HEMOGLOBIN 13.1 G/DL (14.2-18.0); MEAN CORPUSCULAR VOLUME 84 FL (80-99); PLATELET COUNT 218 K/UL (150-450); RED BLOOD COUNT 4.41 M/UL (4.70-6.10); RED CELL DISTRIBUTION WIDTH 11.9 % (11.6-14.8); WHITE BLOOD COUNT 12.7 K/UL (4.8-10.8)
--- NOTE | 2019-08-24 10:38 | NUR ---
NURSE NOTES: Patient re-educated on IS use and educated to use IS every hour while awake, patient verbalized agreement and returned demonstration. Removed NC, patient saturating well on room air.
[2019-08-24 10:45] LABS: ANION GAP 8 mmol/L (5-15); BLOOD UREA NITROGEN 23 mg/dL (7-18); CALCIUM 8.9 MG/DL (8.5-10.1); CARBON DIOXIDE 27 MMOL/L (21-32); CHLORIDE 103 MMOL/L (98-107); SODIUM 138 MMOL/L (136-145)
--- NOTE | 2019-08-24 11:38 | General Progress Note ---
Assessment/Plan Problem List: (1) Closed right hip fracture ICD Codes: S72.001A - Fracture of unspecified part of neck of right femur, initial encounter for closed fracture SNOMED: 931815699 (2) Fall ICD Codes: W19.XXXA - Unspecified fall, initial encounter SNOMED: 4712787, 192127429 (3) Multiple injuries due to trauma ICD Codes: T07.XXXA - Unspecified multiple injuries, initial encounter SNOMED: 783845554 Status: stable Assessment/Plan: #Right femoral head fracture s/p R hip arthroplasty POD#2 #leukocytosis. Asymptomatic, Afebrile, likely reactive. Will monitor med surg Pain control BP control Orthopedic consult Dr. Hung. Check coags, type and screen Will check vit D, b12, TSH, folate, HbA1c and lipid panel --> start B12, vit D pending echocardiogram: Grade i diastolic dysfunction PT/OT Discharge planning GI and vte ppx Code: full code Plan of care discussed with family and patient I spent 40 minutes on this encounter. > 50% spent on counselling and care coordination Subjective Date patient seen: Aug 24, 2019 ROS Limited/Unobtainable: No Constitutional: Denies: no symptoms, chills, diaphoresis, fever, malaise, weakness, other HEENT: Denies: no symptoms, eye pain, blurred vision, tearing, double vision, ear pain, ear discharge, nose pain, nose congestion, throat pain, throat swelling, mouth pain, mouth swelling, other Cardiovascular: Denies: no symptoms, chest pain, edema, irregular heart rate, lightheadedness, palpitations, syncope, other Respiratory: Denies: no symptoms, cough, orthopnea, shortness of breath, SOB with excertion, SOB at rest, sputum, stridor, wheezing, other Gastrointestinal/Abdominal: Denies: no symptoms, abdomen distended, abdominal pain, black stools, tarry stools, blood in stool, constipated, diarrhea, difficulty swallowing, nausea, poor appetite, poor fluid intake, rectal bleeding , vomiting, other Genitourinary: Denies: no symptoms, burning, discharge, frequency, flank pain, hematuria, incontinence, pain, urgency, other Neurologic/Psychiatric: Denies: no symptoms, anxiety, depressed, emotional problems, headache, numbness, paresthesia, pre-existing deficit, seizure, tingling, tremors, weakness, other Endocrine: Denies: no symptoms, excessive sweating, flushing, intolerance to cold, intolerance to heat, increased hunger, increased thirst, increased urine, unexplained weight gain, unexplained weight loss, other Hematologic/Lymphatic: Denies: no symptoms, anemia, easy bleeding, easy bruising, other Allergies: Coded Allergies: PEACH (Verified Allergy, Unknown, 08/21/19) Subjective seen and examined. family at bedside. pod # 2 s/p R hips arthroplasty Objective Last 24 Hour Vital Signs Date Time Temp Pulse Resp B/P (MAP) Pulse Ox O2 Delivery O2 Flow Rate FiO2 08/24/19 09:05 69 136/74 08/24/19 09:00 Nasal Cannula 2.0 08/24/19 08:00 97.5 69 16 136/74 (94) 98 08/24/19 05:35 97.6 70 17 136/76 (96) 95 08/23/19 23:45 97.8 78 18 145/80 (101) 98 08/23/19 20:40 Nasal Cannula 2.0 08/23/19 20:00 97.7 85 20 147/91 (109) 97 08/23/19 16:00 97.2 84 15 149/90 (109) 97 08/23/19 12:00 98.2 78 15 155/83 (107) 97 Intake and Output 08/23/19 08/24/19 19:00 07:00 Intake Total 75 ml 50 ml Output Total 300 ml Balance 75 ml -250 ml Intake Oral 50 ml IV Total 75 ml Output Urine Total 300 ml Laboratory Tests 08/24/19 09:50: White Blood Count 12.7H, Red Blood Count 4.41L, Hemoglobin 13.1L, Hematocrit 36.9L, Mean Corpuscular Volume 84, Mean Corpuscular Hemoglobin 29.7, Mean Corpuscular Hemoglobin Concent 35.5, Red Cell Distribution Width 11.9, Platelet Count 218, Mean Platelet Volume 7.8, Neutrophils (%) (Auto) , Lymphocytes (%) ( Auto) , Monocytes (%) (Auto) , Eosinophils (%) (Auto) , Basophils (%) (Auto) , Differential Total Cells Counted 100, Neutrophils % (Manual) 92H, Lymphocytes % (Manual) 7L, Monocytes % (Manual) 1, Eosinophils % (Manual) 0, Basophils % ( Manual) 0, Band Neutrophils 0, Platelet Estimate Adequate, Platelet Morphology Normal, Red Blood Cell Morphology Normal, Sodium Level 138, Potassium Level 5.0 , Chloride Level 103, Carbon Dioxide Level 27, Anion Gap 8, Blood Urea Nitrogen 23H, Creatinine 1.0, Estimat Glomerular Filtration Rate , Glucose Level 118H, Calcium Level 8.9 Height (Feet): 5 Height (Inches): 8.00 Weight (Pounds): 134 Objective General Appearance: well appearing, no apparent distress, non-toxic Head: normocephalic, atraumatic Eyes: bilateral eye normal inspection ENT: hearing grossly normal, EOM grossly intact, moist mucus membranes Neck: supple, no JVD Respiratory: lungs clear, normal breath sounds, no respiratory distress, speaking full sentences Cardiovascular #1: regular rate, rhythm, no m/r/g, no lower extremity edema Cardiovascular #2: 2+ radial (R), 2+ radial (L), 2+ dorsalis pedis (R), 2+ dorsalis pedis (L) Gastrointestinal: soft, non-distended, non tender, no organomegaly Musculoskeletal: decreased range of motion - right hip dressing c/d/i Neurologic: alert and oriented x4, grossly normal Psychiatric: mood/affect normal Skin: warm/dry, normal turgor, dressing c/d/i Adan Park M.D. Aug 24, 2019 11:38
[2019-08-24 11:47] VITALS: BP 154/89
--- NOTE | 2019-08-24 15:36 | NUR ---
NURSE NOTES: Patient ambulated around unit with walker and assist, tolerated well. Patient is up in chair currently, call light placed within reach and patient educated to call for assistance before getting up/back to bed, patient verbalized understanding.
[2019-08-24 16:00] VITALS: BP 128/73
--- NOTE | 2019-08-24 19:30 | NUR ---
NURSE NOTES: Received report from KATHY Singh. Received pt laying in bed AOx4, denies any pain, no distress noted. Right hip dressing with stain. Will change dressing. Bed in lowest position and locked, side rails up x 2, call light within reach. Will continue to monitor.
--- NOTE | 2019-08-24 19:45 | NUR ---
HAND-OFF: Report given to Pipo CHAVEZ.
[2019-08-24 20:00] VITALS: BP 159/78
--- NOTE | 2019-08-24 21:00 | NUR ---
NURSE NOTES: Right hip dressing change done. Applied 4x4 gauze and tegaderm, c/d/i. Pt denies pain. No distress noted.
[2019-08-25] VITALS: BP 139/74
[2019-08-25 04:00] VITALS: BP 151/83
[2019-08-25 05:50] LABS: BASOPHILS % (AUTO) 0.4 % (0.0-2.0); EOSINOPHILS % (AUTO) 0.1 % (0.0-3.0); HEMATOCRIT 36.1 % (42.0-52.0); HEMOGLOBIN 12.7 G/DL (14.2-18.0); LYMPHOCYTES % (AUTO) 13.8 % (20.0-45.0); MEAN CORPUSCULAR VOLUME 83 FL (80-99); MONOCYTES % (AUTO) 6.9 % (1.0-10.0); NEUTROPHILS % (AUTO) 78.8 % (45.0-75.0); PLATELET COUNT 217 K/UL (150-450); RED BLOOD COUNT 4.38 M/UL (4.70-6.10); RED CELL DISTRIBUTION WIDTH 11.6 % (11.6-14.8); WHITE BLOOD COUNT 10.8 K/UL (4.8-10.8)
[2019-08-25 06:03] LABS: ANION GAP 6 mmol/L (5-15); BLOOD UREA NITROGEN 25 mg/dL (7-18); CALCIUM 8.3 MG/DL (8.5-10.1); CARBON DIOXIDE 26 MMOL/L (21-32); CHLORIDE 102 MMOL/L (98-107); CREATININE 0.8 MG/DL (0.55-1.30); POTASSIUM 4.7 MMOL/L (3.5-5.1); SODIUM 134 MMOL/L (136-145)
--- NOTE | 2019-08-25 07:15 | NUR ---
HAND-OFF: Report given to KATHY Felix. Pt in stable condition.
--- NOTE | 2019-08-25 07:45 | NUR ---
NURSE NOTES: Received report from Elvira CHAVEZ. Patient is awake and oriented, no acute distress noted, reporting no pain at this time. Right hip dressing clean, dry, intact, changed last night by awake overnight monitor nurse. IV intact, locked. Neuro check assessed intact, no numbness/tingling reported by patient. Safety measures in place. Fall precautions maintained. Side rails upx3, bed low and locked, call light within reach, bed alarm armed.
[2019-08-25 08:00] VITALS: BP 154/89
--- NOTE | 2019-08-25 08:20 | NUR ---
PT NOTE Attempted to see patient for PT treatment, patient declining to participate with PT at this time, states he did not sleep well last night, requesting that therapist return in the p.m. Samantha CHAVEZ notified, will follow.
--- NOTE | 2019-08-25 09:36 | General Progress Note ---
Assessment/Plan Problem List: (1) Closed right hip fracture ICD Codes: S72.001A - Fracture of unspecified part of neck of right femur, initial encounter for closed fracture SNOMED: 072826140 (2) Fall ICD Codes: W19.XXXA - Unspecified fall, initial encounter SNOMED: 7094050, 379417032 (3) Multiple injuries due to trauma ICD Codes: T07.XXXA - Unspecified multiple injuries, initial encounter SNOMED: 087610232 Status: stable Assessment/Plan: #Right femoral head fracture s/p R hip arthroplasty POD#3 #leukocytosis. Asymptomatic, Afebrile, likely reactive. Will monitor med surg Pain control BP control Orthopedic consult Dr. Hung. Check coags, type and screen Will check vit D, b12, TSH, folate, HbA1c and lipid panel --> start B12, vit D pending echocardiogram: Grade i diastolic dysfunction PT/OT Discharge planning GI and vte ppx Code: full code Plan of care discussed with family and patient I spent 40 minutes on this encounter. > 50% spent on counselling and care coordination Subjective Date patient seen: Aug 25, 2019 Allergies: Coded Allergies: CHARLENECH (Verified Allergy, Unknown, 08/21/19) Subjective seen and examined. family at bedside. pod # 3 s/p R hips arthroplasty Objective Last 24 Hour Vital Signs Date Time Temp Pulse Resp B/P (MAP) Pulse Ox O2 Delivery O2 Flow Rate FiO2 08/25/19 08:00 97.9 81 16 154/89 (110) 96 08/25/19 04:00 97.9 78 18 151/83 (105) 97 08/25/19 00:00 98.2 74 19 139/74 (95) 95 08/24/19 21:00 Room Air 08/24/19 20:00 98.0 70 18 159/78 (105) 97 08/24/19 16:00 97.9 75 18 128/73 (91) 97 08/24/19 11:47 97.1 69 19 154/89 (110) 97 Intake and Output 08/24/19 08/25/19 19:00 07:00 Intake Total 720 ml 300 ml Output Total 700 ml Balance 720 ml -400 ml Intake Oral 720 ml 300 ml Output Urine Total 700 ml # Voids 2 Laboratory Tests 08/24/19 09:50: White Blood Count 12.7H, Red Blood Count 4.41L, Hemoglobin 13.1L, Hematocrit 36.9L, Mean Corpuscular Volume 84, Mean Corpuscular Hemoglobin 29.7, Mean Corpuscular Hemoglobin Concent 35.5, Red Cell Distribution Width 11.9, Platelet Count 218, Mean Platelet Volume 7.8, Neutrophils (%) (Auto) , Lymphocytes (%) ( Auto) , Monocytes (%) (Auto) , Eosinophils (%) (Auto) , Basophils (%) (Auto) , Differential Total Cells Counted 100, Neutrophils % (Manual) 92H, Lymphocytes % (Manual) 7L, Monocytes % (Manual) 1, Eosinophils % (Manual) 0, Basophils % ( Manual) 0, Band Neutrophils 0, Platelet Estimate Adequate, Platelet Morphology Normal, Red Blood Cell Morphology Normal, Sodium Level 138, Potassium Level 5.0 , Chloride Level 103, Carbon Dioxide Level 27, Anion Gap 8, Blood Urea Nitrogen 23H, Creatinine 1.0, Estimat Glomerular Filtration Rate , Glucose Level 118H, Calcium Level 8.9 08/25/19 04:34: White Blood Count 10.8, Red Blood Count 4.38L, Hemoglobin 12.7L, Hematocrit 36.1L, Mean Corpuscular Volume 83, Mean Corpuscular Hemoglobin 29.1, Mean Corpuscular Hemoglobin Concent 35.2, Red Cell Distribution Width 11.6, Platelet Count 217, Mean Platelet Volume 7.1, Neutrophils (%) (Auto) 78.8H, Lymphocytes ( %) (Auto) 13.8L, Monocytes (%) (Auto) 6.9, Eosinophils (%) (Auto) 0.1, Basophils (%) (Auto) 0.4, Sodium Level 134L, Potassium Level 4.7, Chloride Level 102, Carbon Dioxide Level 26, Anion Gap 6, Blood Urea Nitrogen 25H, Creatinine 0.8, Estimat Glomerular Filtration Rate , Glucose Level 117H, Calcium Level 8.3L Height (Feet): 5 Height (Inches): 8.00 Weight (Pounds): 134 Objective General Appearance: well appearing, no apparent distress, non-toxic Head: normocephalic, atraumatic Eyes: bilateral eye normal inspection ENT: hearing grossly normal, EOM grossly intact, moist mucus membranes Neck: supple, no JVD Respiratory: lungs clear, normal breath sounds, no respiratory distress, speaking full sentences Cardiovascular #1: regular rate, rhythm, no m/r/g, no lower extremity edema Cardiovascular #2: 2+ radial (R), 2+ radial (L), 2+ dorsalis pedis (R), 2+ dorsalis pedis (L) Gastrointestinal: soft, non-distended, non tender, no organomegaly Musculoskeletal: decreased range of motion - right hip dressing c/d/i Neurologic: alert and oriented x4, grossly normal Psychiatric: mood/affect normal Skin: warm/dry, normal turgor, dressing c/d/i Adan Park M.D. Aug 25, 2019 09:36
[2019-08-25] MEDS: Docusate 100mg cap ORAL SCH ×3 (09:39→17:35)
[2019-08-25] MEDS: Vitamin B-12 500mcg tab ORAL SCH (09:39)
[2019-08-25] MEDS: celeBREX 200mg Cap **SURGERY PATIENTS ONLY ORAL SCH (09:40)
[2019-08-25] MEDS: Heparin 5000 units/ml inj SUBQ SCH (09:41)
[2019-08-25 12:00] VITALS: BP 149/85
--- NOTE | 2019-08-25 13:53 | Discharge Summary ---
Discharge Summary Hospital Course Date of Admission Aug 21, 2019 at 13:44 Date of Discharge 08/25/2019 Admitting Diagnosis hip fx HPI Nakul Raymundo is a 78 year old male who was admitted on Aug 21, 2019 at 13:44 for Hip Fracture Consultations orthopedics Procedures R hip hemiarthroplasty Hospital Course #Right femoral head fracture s/p R hip arthroplasty POD#3 #leukocytosis. Asymptomatic, Afebrile, likely reactive. Will monitor med surg Pain control BP control Orthopedic consult Dr. Hung. Check coags, type and screen Will check vit D, b12, TSH, folate, HbA1c and lipid panel --> start B12, vit D pending echocardiogram: Grade i diastolic dysfunction PT/OT Discharge planning home with walker. GI and vte ppx Code: full code Plan of care discussed with family and patient I spent 40 minutes on this encounter. > 50% spent on counselling and care coordination Discharge Medications New Medications: Amlodipine Besylate (Norvasc) 10 Mg Tablet 10 MG ORAL DAILY for 14 Days, #14 TAB Celecoxib* (Celebrex*) 200 Mg Capsule 200 MG ORAL DAILY for 10 Days, #10 CAP Cyanocobalamin (Vitamin B-12)* (Vitamin B-12*) 500 Mcg Tablet 1000 MCG ORAL DAILY for 14 Days, #14 TAB Ferrous Sulfate (Feosol) 325 Mg Tablet 325 MG ORAL TID@0630,1130,1630 for 10 Days, #30 TAB Discharge Condition Upon Discharge: stable Discharge Disposition Patient was discharged to home Discharge Diagnoses: (1) Fall (2) Multiple injuries due to trauma (3) Closed right hip fracture (4) History of right hip hemiarthroplasty Adan Park M.D. Aug 25, 2019 13:53
[2019-08-25] MEDS ORDERED: NORVASC10 MG ORAL (13:56)
[2019-08-25] MEDS ORDERED: CELEBREX200 MG ORAL (13:56)
[2019-08-25] MEDS ORDERED: FEOSOL325 MG ORAL (13:56)
[2019-08-25] MEDS ORDERED: VITAMIN B-12500 MCG ORAL (13:56)
[2019-08-25 16:00] VITALS: BP 163/85
[2019-08-25 16:44] VITALS: BP 137/84
--- NOTE | 2019-08-25 18:57 | NUR ---
NURSE NOTES: Patient discharged without distress at 1850. Patient provided with discharge instructions and new Rx. Discharge instructions reviewed with patient via [employer] fine arts chair Modesta CHAVEZ from . Patient provided with front wheel walker per order and raised toilet seat per PT recommendation. Patient verbalized understanding of provided discharge teaching including instructions for new medications and follow up. IV removed intact. Patient escorted to private vehicle via wheelchair accompanied by patient's daughter and son in law.
== END 2019-08-25 18:50 | disposition home or self-care (01) | DRG 470 ==
LOC: EDBD 13:11 → EMR 13:30 → 3E 13:44 → EDBEDREQ 14:46
PROC: 0SRR0JZ Replacement of Right Hip Joint, Femoral Surface with Synthetic Substitute, Open Approach (ICD-10-PCS; principal; 2019-08-22 17:00)
DX: S72.001A Fracture of unspecified part of neck of right femur, initial encounter for closed fracture (principal); W01.0XXA Fall on same level from slipping, tripping and stumbling without subsequent striking against object, initial encounter; Y92.9 Unspecified place or not applicable; D72.829 Elevated white blood cell count, unspecified
CPT/HCPCS: 36415; 72170; 80048; 80053; 80061; 81003; 82306; 82607; 82746; 83036; 84443; 85007; 85025; 85610; 85730; 86900; 86901; 93005; 93306; 94003; 94150; 99285; J2405; J8499